=== PATIENT | male | born 1980 ===

== ENCOUNTER 2022-07-11 06:23 | Emergency (ER) | payer SELFPAY ==
--- NOTE | 2022-07-11 06:39 | NUR ---
Patient left without being triaged or seen by ERMD. Patient went up to registration window and stated "I change my mind, I don't want to be seen anymore."
== END 2022-07-11 06:41 | disposition left against medical advice (07) ==
LOC: ER 06:29
DX: Z53.21 Procedure and treatment not carried out due to patient leaving prior to being seen by health care provider (principal)